=== PATIENT | female | born 1935 | race Caucasian/White ===

== ENCOUNTER 2016-11-16 11:08 | Observation (INO) | payer OTHER ==
[~2016-11-16] VITALS: Ht 162.6 cm; Wt 69.1 kg
[2016-11-16 11:56] LABS: EOSINOPHIL (%) 1.3 % (0-5); EOSINOPHIL COUNT 0.1 K/uL (0-0.3); HEMATOCRIT 40.3 % (36.0-46.0); IMMATURE GRANULOCYTE (%) 0.2 % (0.0-0.7); INSTRUMENT ABS NEUTROPHIL CT 2.8 K/uL; LYMPHOCYTE COUNT 2.4 K/uL (1.0-2.8); MCH 32.3 PG (29.0-34.0); MCHC 34.2 G/DL (30.0-36.0); MCV 94.4 FL (83-99); MEAN PLAT.VOLUME 8.5 uM^3 (9.5-12.4); MONOCYTE (%) 10.9 % (3-12); MONOCYTE COUNT 0.7 K/uL (0-0.8); NEUTROPHIL (%) 46.3 % (45-76); NEUTROPHIL COUNT 2.8 K/uL (1.8-6.4); PLATELET COUNT 194 K/uL (156-360); RBC DIS.WIDTH-CV 13.3 % (11.8-14.6); RBC DIS.WIDTH-SD 45.9 % (39-53); RED BLOOD COUNT 4.27 M/uL (3.80-5.20)
[2016-11-16 12:02] LABS: INTER. NORMALIZED RATIO 1.1; PROTHROMBIN TIME 11.8 SEC (10.2-12.9)
[2016-11-16 12:05] LABS: PTT 35.1 SEC (25-37)
[2016-11-16 12:08] LABS: CHLORIDE 109 mEq/L (99-109); POTASSIUM 3.9 mEq/L (3.7-5.4); SODIUM 144 mEq/L (136-147)
[2016-11-16 12:09] LABS: MAGNESIUM 1.8 mg/dL (1.3-2.7)
[2016-11-16 12:10] LABS: GLUCOSE 95 mg/dL (70-99)
[2016-11-16 12:11] LABS: ANION GAP 10 MEQ/L (2-14)
[2016-11-16 12:14] LABS: GFR ESTIMATE (CALCULATED) > 59 mL/min/; UREA NITROGEN (BUN) 17 mg/dL (9-23)
[2016-11-16 12:20] LABS: TROP-I INTERPRETATION NEGATIVE; TROPONIN-I 0.01 ng/mL (0.0-0.30)
[2016-11-16] MEDS ORDERED: DUONEB 2.5-0.5 M3 ML AEROSOL (16:17)
[2016-11-16] MEDS ORDERED: ATORVASTATIN CA80 MG PO (16:18)
[2016-11-16] MEDS ORDERED: HYDROCHLOROTH12.5 M3 PO (16:18)
[2016-11-16] MEDS ORDERED: LOSARTAN POTASS50 MG PO (16:19)
[2016-11-16] MEDS ORDERED: CARVEDILOL12.5 MG PO (16:19)
[2016-11-16] MEDS ORDERED: MULTI-VITAMIN1 EAC4 PO (16:20)
[2016-11-16] MEDS ORDERED: PROAIR HFA8.5 GM IH (16:20)
[2016-11-16] MEDS ORDERED: ASCORBIC ACID500 M3 PO (16:20)
[2016-11-16] MEDS ORDERED: ASPIR-LOW81 MG PO (16:21)
[2016-11-16] MEDS ORDERED: CYANOCOBALAM1000 MCG PO (16:21)
[2016-11-16] MEDS ORDERED: TYLENOL ARTHRI650 MG PO (16:21)
[2016-11-16 17:45] VITALS: BP 163/79
[2016-11-16 18:41] LABS: TROP-I INTERPRETATION NEGATIVE; TROPONIN-I 0.02 ng/mL (0.0-0.30)
[2016-11-16 20:33] VITALS: BP 159/79
[2016-11-17 01:51] LABS: TROP-I INTERPRETATION NEGATIVE; TROPONIN-I 0.03 ng/mL (0.0-0.30)
[2016-11-17 03:44] VITALS: BP 143/74
[2016-11-17 08:15] VITALS: BP 169/85
== END 2016-11-17 12:00 | disposition home or self-care (01) ==
LOC: EME 11:08 → EDOF 15:56 → 5WEST 15:56 → ENRESERV 15:57 → 5WEST 17:55 → ENPENDDIS 11-17 → 5WEST 11-17 12:00
PROVIDERS: Emergency Medicine; Internal Medicine; Physician Assistant Medical
DX: R07.9 Chest pain, unspecified (principal); R06.02 Shortness of breath; I44.7 Left bundle-branch block, unspecified; I25.10 Atherosclerotic heart disease of native coronary artery without angina pectoris; Z95.5 Presence of coronary angioplasty implant and graft; I25.2 Old myocardial infarction; I10 Essential (primary) hypertension; J45.909 Unspecified asthma, uncomplicated; G25.81 Restless legs syndrome; Z90.710 Acquired absence of both cervix and uterus; Z88.1 Allergy status to other antibiotic agents; Z88.2 Allergy status to sulfonamides; Z88.8 Allergy status to other drugs, medicaments and biological substances; Z83.3 Family history of diabetes mellitus; Z82.5 Family history of asthma and other chronic lower respiratory diseases
CPT/HCPCS: 71010; 80048; 83735; 84484; 85025; 85379; 85610; 85730; 93005; 94640; 94640 76; 99202; 99281; 99284; G0378

== ENCOUNTER → 2017-01-17 | Outpatient (CLI) | payer OTHER ==
[~2017-01-17] MED LIST: ASCORBIC ACID500 M3 PO; ASPIR-LOW81 MG PO; ATORVASTATIN CA80 MG PO; CARVEDILOL12.5 MG PO; CYANOCOBALAM1000 MCG PO; DUONEB 2.5-0.5 M3 ML AEROSOL; HYDROCHLOROTH12.5 M3 PO; LOSARTAN POTASS50 MG PO; MULTI-VITAMIN1 EAC4 PO; PROAIR HFA8.5 GM IH; TYLENOL ARTHRI650 MG PO
== END | disposition home or self-care (01) ==
LOC: NUC 09:28
DX: K21.9 Gastro-esophageal reflux disease without esophagitis (principal)
CPT/HCPCS: 78226; A9537